=== PATIENT | male | born 1970 ===

== ENCOUNTER 2018-07-14 21:52 | Emergency (ER) | payer OTHER ==
[2018-07-14] MEDS ORDERED: cefTRIAXone (Rocephin) 1 gm Inj ONE (23:49)
--- NOTE | 2018-07-15 00:07 | ED PDOC ---
HPI: Chest Pain Time Seen by Provider: 07/14/18 23:12 Chief Complaint (Nursing): Chest Pain Chief Complaint (Provider): chest pain History Per: Patient, Family (, (patient gives permission for her to translate)) History/Exam Limitations: no limitations Onset/Duration Of Symptoms: Days (2 weeks) Current Symptoms Are (Timing): Still Present Quality: "Pain" Exacerbating Factors: Deep Breathing Additional Complaint(s): 48 y/o male presents for evaluation of left-sided chest pain x 2 weeks. Patient states pain worsened with deep breaths. Denies fever, headache, palpitations, shortness of breath, leg pain/swelling, recent travel. Past Medical History Reviewed: Historical Data, Nursing Documentation, Vital Signs Vital Signs: Last Vital Signs Temp 98.3 F 07/14/18 22:01 Pulse 82 07/14/18 22:01 Resp 16 07/14/18 22:01 BP 131/77 07/14/18 22:01 Pulse Ox 100 07/14/18 22:01 - Medical History PMH: Hyperlipidemia - Surgical History Surgical History: No Surg Hx - Family History Family History: States: [place] (father; 70's) - Living Arrangements Living Arrangements: With Family - Social History Current smoker - smoking cessation education provided: No Alcohol: None Drugs: Denies - Allergies Allergies/Adverse Reactions: Allergies Allergy/AdvReac Type Severity Reaction Status Date / Time No Known Allergies Allergy Verified 07/14/18 22:00 KORY Risk Score for UA/NSTEMI - KORY Risk Score Age > 64: NO 3 or more CAD Risk Factors: NO Known CAD (Stenosis greater than 50%): NO Aspirin use in past 7 days: NO Severe Angina: NO EKG ST changes greater than 0.5mm: NO Positive Cardiac Marker: NO KORY Score: 0 Risk %: 5% Review of Systems ROS Statement: Except As Marked, All Systems Reviewed And Found Negative Cardiovascular: Positive for: Chest Pain Physical Exam - Reviewed Nursing Documentation Reviewed: Yes Vital Signs Reviewed: Yes - Physical Exam Appears: Positive for: Well, Non-toxic, No Acute Distress Head Exam: Positive for: ATRAUMATIC, NORMAL INSPECTION, NORMOCEPHALIC Skin: Positive for: Normal Color Eye Exam: Positive for: Normal appearance ENT: Positive for: Normal ENT Inspection Cardiovascular/Chest: Positive for: Regular Rate, Rhythm. Negative for: Chest Non Tender (tender to palpate upper sternum, left chest wall) Respiratory: Positive for: Normal Breath Sounds Gastrointestinal/Abdominal: Positive for: Normal Exam Back: Positive for: Normal Inspection Extremity: Positive for: Normal ROM Neurological/Psych: Positive for: Awake, Alert, Oriented - Laboratory Results Result Diagrams: 07/15/18 00:19 07/15/18 00:19 - ECG ECG: Positive for: Viewed By Me (reviewed by ED attending) ECG Rhythm: Positive for: Sinus Rhythm O2 Sat by Pulse Oximetry: 100 - Radiology X-Ray: Viewed By Me X-Ray Interpretation: No Acute Disease - Progress ED Course And Treament: -cbc -cmp -troponin -ekg -cxr -IV toradol On re-eval, patient resting comfortably; states pain improved Patient educated on findings, discharged with instructions to follow up with PMD within 2-3 days Advised NSAIDs PRN pain Return precautions given Disposition - Clinical Impression Clinical Impression: Atypical chest pain - Patient ED Disposition Is Patient to be Admitted: No Counseled Patient/Family Regarding: Studies Performed, Diagnosis, Need For Followup, Rx Given - Disposition Disposition: Routine/Home Disposition Time: 01:57 Condition: IMPROVED Instructions: Chest Pain Forms: [employer] (Albanian) Print Language: FAROESE
[2018-07-15 00:37] LABS: BASO # 0.1 K/uL (0.0-0.2); EOS # 0.2 K/uL (0.0-0.7); EOS % 3.3 % (0.0-4.0); HEMOGLOBIN 12.6 g/dL (12.0-18.0); LYMPH # 2.8 K/uL (1.0-4.3); LYMPH % 39.2 % (20.0-40.0); MEAN CELL VOLUME 78.8 fl (80.0-94.0); MEAN CORPUSCULAR HEMOGLOBIN 25.8 pg (27.0-31.0); MEAN CORPUSCULAR HGB CONC 32.7 g/dL (33.0-37.0); MEAN PLATELET VOLUME 7.2 fl (7.2-11.7); MONO # 0.8 K/uL (0.0-0.8); MONO % 10.7 % (0.0-10.0); NEUT # 3.2 K/uL (1.8-7.0); NEUT % 45.8 % (50.0-75.0); NRBC % 0.1 % (0.0-0.0); RBC 4.87 Mil/uL (4.40-5.90); RED CELL DISTRIBUTION WIDTH 14.2 % (11.5-14.5); WHITE BLOOD COUNT 7.1 K/uL (4.8-10.8)
[2018-07-15 00:47] LABS: ALB/GLOB RATIO 1.2 (1.0-2.1); ALBUMIN 4.2 g/dL (3.5-5.0); BLOOD UREA NITROGEN 15 mg/dl (9-20); CALCIUM 9.5 mg/dL (8.4-10.2); GFR NON-AFRICAN AMERICAN > 60
[2018-07-15 00:59] LABS: ALT/SGPT 38 U/L (21-72); AST/SGOT 46 U/L (17-59)
[2018-07-15 01:45] VITALS: PULSE 64
[2018-07-15 01:57] VITALS: O2SAT 100
[2018-07-15 02:26] VITALS: BP 113/78; RESP 99; TEMP 98
--- NOTE | 2018-07-15 09:01 | CARD ---
APPROVED REPORT Date of service: 07/14/2018 EKG Measurement Heart [id number] <Conclusion> Normal sinus rhythm Normal ECG
--- NOTE | 2018-07-15 15:21 | RAD ---
Date of service: 07/15/2018 HISTORY: Chest pain. COMPARISON: No prior. TECHNIQUE: Chest PA and lateral FINDINGS: LUNGS: No active pulmonary disease. PLEURA: No significant pleural effusion identified. No pneumothorax apparent. CARDIOVASCULAR: No aortic atherosclerotic calcification present. Incidental finding(s): Right-sided aortic arch. Normal cardiac size. No pulmonary vascular congestion. OSSEOUS STRUCTURES: No significant abnormalities. VISUALIZED UPPER ABDOMEN: Normal. OTHER FINDINGS: None. IMPRESSION: No active disease.
== END 2018-07-15 02:26 | disposition home or self-care (01) ==
LOC: H.ER 21:52
DX: R07.89 Other chest pain (principal); E78.5 Hyperlipidemia, unspecified
CPT/HCPCS: 71046; 80053; 84484; 85025; 93005; 96374; 99284; J1885